=== PATIENT | female | born 1930 | race Caucasian/White ===

== ENCOUNTER 2016-07-30 16:55 | Inpatient (IN) | payer OTHER ==
[~2016-07-30] VITALS: Ht 134.6 cm; Wt 41.5 kg
[~2016-07-30 16:55] MED LIST: ALBU0.63 NEB; AMLO5TAB2 PO; AMLO5TAB4 PO; ASPI-650 PO; ATOR40TA78 PO; BISA10SU65 PR; CALC300T5 PO; CALC400T6 PO; CALC667C3 PO; CALC667T3 PO; CARV3.122 PO; CARV6.2512 PO; CEFD300C2 PO; CLIN300C93 PO; CYAN1TAB29 PO; CYCL5TAB PO; DARB100V SQ; DRON2.5C2 PO; ERGO500017 PO; FERR325T10 PO; FURO-92 PO; HYDR-3138 PO; HYDR-3150 PO; HYDR-3240 PO; HYDR1TAB12 PO; INSU100I11 SQ; INSU100I28 SQ-INSULIN; INSU100V5 SQ-INSULIN; INSU100V8 SQ; IPRA3AMP INH; LANTUS SQ-INSULIN; LEVO100C2 PO; LEVO100T PO; LEVO112T2 PO; LEVO750T26 PO; LEVO88TA4 PO; LISI-167 PO; LISI-170 PO; LISI-424 PO; LISI5TAB7 PO; MECL12.52 PO; METO25TA35 PO; METR500T PO; NOVOLOG SQ-INSULIN; ONDA-39 PO; ONDA4TAB7 PO; PIPE2.253 IV; PIPE2.255 IV; POLY17PO5 PO; PRAV20TA2 PO; PRED10TA PO; PRED10TA14 PO; PRED5TAB PO; PREDNISONE PO; SENN1TAB7 PO; SODI15OR3 DIALYCATH; SULF1TAB3 PO; TRAZ50TA18 PO; humalog SC
[2016-07-30 19:35] VITALS: BP 129/58
[2016-07-30] MEDS ORDERED: BISACODYL 10 MG SUPP PR PRN ×2 (23:00)
[2016-07-30] MEDS: INSULIN REGULAR 100 UNITS/ML, 3ML VIAL SQ-INSULIN SCH (23:00)
[2016-07-30] MEDS ORDERED: POLYETHYLENE GLYCOL 17 GM PACKET PO PRN (23:00)
[2016-07-30] MEDS ORDERED: DOCUSATE 100 MG CAPSULE PO PRN (23:00)
[2016-07-30] MEDS ORDERED: PHARMACOKINETIC MONITORING MC PRN (23:00)
[2016-07-30] MEDS ORDERED: VANCOMYCIN PER PHARMACY MC PRN (23:00)
[2016-07-30] MEDS ORDERED: ACETAMINOPHEN 325 MG TABLET PO PRN (23:00)
[2016-07-30] MEDS: PIPERACILLIN/TAZO/PMX 3.375GM 50 ML IV SCH (23:54)
[2016-07-30] MEDS: HEPARIN 5,000 UNITS/ML, 1ML SQ SCH (23:55)
[2016-07-30] MEDS: MORPHINE SULFATE 4 MG/ML, 1ML IVPush PRN (23:55)
[2016-07-31] MEDS ORDERED: VANCOMYCIN 1,000 MG in SODIUM CHLORIDE 0.9% 100 ML IV ONE (00:30)
[2016-07-31 01:21] VITALS: BP 129/62
[2016-07-31] MEDS ORDERED: ALBUTEROL/IPRATROPIUM 2.5MG/0.5MG, 3 ML NPPB PRN (02:30)
[2016-07-31] MEDS: MORPHINE SULFATE 4 MG/ML, 1ML IVPush PRN (05:15)
[2016-07-31] MEDS: LEVOTHYROXINE 112 MCG TABLET PO SCH (05:15)
[2016-07-31 06:35] LABS: ASPARTATE AMINO TRANSFERASE 19 U/L (15-37); BLOOD UREA NITROGEN 38 mg/dL (7-18)
[2016-07-31] MEDS: HEPARIN 5,000 UNITS/ML, 1ML SQ SCH ×3 (07:00→21:45)
[2016-07-31] MEDS: INSULIN REGULAR 100 UNITS/ML, 3ML VIAL SQ-INSULIN SCH ×4 (07:00→21:00)
[2016-07-31 07:13] VITALS: BP 106/66
[2016-07-31] MEDS: LISINOPRIL 5 MG TABLET PO SCH (08:42)
[2016-07-31] MEDS: FERROUS SULFATE 325 MG TABLET PO SCH ×3 (08:42→21:39)
[2016-07-31] MEDS: FUROSEMIDE 40 MG TABLET PO SCH ×2 (08:42→21:00)
[2016-07-31] MEDS: ASPIRIN 81 MG TABLET EC PO SCH (08:42)
[2016-07-31] MEDS: PIPERACILLIN/TAZO/PMX 3.375GM 50 ML IV SCH (09:30)
[2016-07-31 10:54] LABS: C-REACTIVE PROTEIN, QUANT 5.9 mg/dL (0.02-0.49)
[2016-07-31] MEDS ORDERED: PIPERACILLIN/TAZO 0.75 GM in SODIUM CHLORIDE 0.9% 50 ML IV PRN (12:00)
[2016-07-31 13:21] VITALS: BP 112/69
[2016-07-31] MEDS: HYDROcodone/APAP 5/325 TABLET PO SCH (21:39)
[2016-07-31] MEDS: PIPERACILLIN/TAZO/PMX 2.25GM 50 ML IVPB SCH (21:39)
[2016-07-31 21:52] VITALS: BP 127/59
[2016-08-01 03:51] VITALS: BP 129/65
[2016-08-01 05:05] LABS: HEMOGLOBIN 10.2 g/dL (11.7-16.4)
[2016-08-01 05:12] LABS: BLOOD UREA NITROGEN 22 mg/dL (7-18)
[2016-08-01 05:19] LABS: ASPARTATE AMINO TRANSFERASE 19 U/L (15-37); TOTAL IRON BINDING CAPACITY 96 mcg/dL (250-450)
[2016-08-01 05:33] LABS: ANISOCYTOSIS 1+; MONOS WITH VACUOLES 1+; OVALOCYTES 1+; POIKILOCYTOSIS 1+; POLYCHROMASIA 1+; SCHISTOCYTES 1+
[2016-08-01] MEDS: LEVOTHYROXINE 112 MCG TABLET PO SCH (06:03)
[2016-08-01 06:34] VITALS: BP 131/76
[2016-08-01] MEDS: INSULIN REGULAR 100 UNITS/ML, 3ML VIAL SQ-INSULIN SCH ×4 (07:00→20:32)
[2016-08-01 08:05] LABS: HEP B SURF. AB < 3.1 mIU/mL (0.0-10.0)
[2016-08-01] MEDS: HEPARIN 5,000 UNITS/ML, 1ML SQ SCH ×3 (08:06→22:08)
[2016-08-01] MEDS: ASPIRIN 81 MG TABLET EC PO SCH (08:06)
[2016-08-01] MEDS: LISINOPRIL 5 MG TABLET PO SCH (08:06)
[2016-08-01] MEDS: FERROUS SULFATE 325 MG TABLET PO SCH ×3 (08:06→20:23)
[2016-08-01] MEDS: FUROSEMIDE 40 MG TABLET PO SCH ×2 (08:06→20:23)
[2016-08-01] MEDS ORDERED: DEXTROSE 50%, 50ML SYRINGE IVPush PRN (08:30)
[2016-08-01] MEDS ORDERED: DEXTROSE 4 GM TAB.CHEW PO PRN (08:30)
[2016-08-01] MEDS ORDERED: GLUCAGON 1 MG IM PRN (08:30)
[2016-08-01] MEDS: SODIUM CHLORIDE FLUSH 10ML SYR IVF SCH ×2 (09:00→20:23)
[2016-08-01] MEDS: PIPERACILLIN/TAZO/PMX 2.25GM 50 ML IVPB SCH ×2 (09:44→20:23)
[2016-08-01] MEDS: MORPHINE SULFATE 4 MG/ML, 1ML IVPush PRN ×2 (09:55→15:14)
[2016-08-01 12:44] VITALS: BP 114/51
[2016-08-01] MEDS: HYDROcodone/APAP 5/325 TABLET PO SCH (20:23)
[2016-08-01 20:39] VITALS: BP 117/52
[2016-08-02 01:52] VITALS: BP 133/72
[2016-08-02] MEDS: LEVOTHYROXINE 112 MCG TABLET PO SCH (05:45)
[2016-08-02 06:07] LABS: HEMOGLOBIN 9.5 g/dL (11.7-16.4)
[2016-08-02 06:14] LABS: ASPARTATE AMINO TRANSFERASE 19 U/L (15-37); BLOOD UREA NITROGEN 34 mg/dL (7-18)
[2016-08-02 08:04] VITALS: BP 124/59
[2016-08-02] MEDS: SODIUM CHLORIDE FLUSH 10ML SYR IVF SCH ×2 (08:18→22:09)
[2016-08-02] MEDS: FERROUS SULFATE 325 MG TABLET PO SCH ×3 (08:18→22:08)
[2016-08-02] MEDS: HEPARIN 5,000 UNITS/ML, 1ML SQ SCH ×3 (08:18→23:00)
[2016-08-02] MEDS: INSULIN REGULAR 100 UNITS/ML, 3ML VIAL SQ-INSULIN SCH ×4 (08:18→21:00)
[2016-08-02] MEDS: ASPIRIN 81 MG TABLET EC PO SCH (08:18)
[2016-08-02] MEDS: FUROSEMIDE 40 MG TABLET PO SCH ×2 (08:19→22:08)
[2016-08-02] MEDS: MORPHINE SULFATE 4 MG/ML, 1ML IVPush PRN (08:22)
[2016-08-02] MEDS: PIPERACILLIN/TAZO/PMX 2.25GM 50 ML IVPB SCH ×2 (13:22→22:08)
[2016-08-02] MEDS: LISINOPRIL 5 MG TABLET PO SCH (13:23)
[2016-08-02 15:35] VITALS: BP 127/63
[2016-08-02 19:33] VITALS: BP 108/55
[2016-08-02] MEDS: HYDROcodone/APAP 5/325 TABLET PO SCH (22:08)
[2016-08-03 01:16] VITALS: BP 126/68
[2016-08-03 03:35] LABS: BLOOD UREA NITROGEN 24 mg/dL (7-18)
[2016-08-03 03:40] LABS: HEMOGLOBIN 9.5 g/dL (11.7-16.4)
[2016-08-03] MEDS: LEVOTHYROXINE 112 MCG TABLET PO SCH (05:09)
[2016-08-03] MEDS ORDERED: ALBUMIN HUMAN 5% 500 ML ONE (06:48)
[2016-08-03] MEDS ORDERED: ROPIvacaine/PF 0.2%, 20 ML ONE (06:49)
[2016-08-03] MEDS ORDERED: DOPAMINE/D5W PMX 250 ML IV PRN (07:00)
[2016-08-03] MEDS: INSULIN REGULAR 100 UNITS/ML, 3ML VIAL SQ-INSULIN SCH ×4 (07:00→20:40)
[2016-08-03] MEDS: HEPARIN 5,000 UNITS/ML, 1ML SQ SCH ×3 (07:00→23:00)
[2016-08-03] MEDS ORDERED: MIDAZOLAM 1 MG/ML, 2ML ONE (07:15)
[2016-08-03] MEDS ORDERED: FENTANYL PF 250 MCG/5ML ONE (07:15)
[2016-08-03] MEDS ORDERED: KETAMINE 10 MG/ML, 20ML ONE ×2 (07:16→08:05)
[2016-08-03] MEDS ORDERED: BUPIVACAINE/PF-EPI 0.5% 1:200K ONE (07:26)
[2016-08-03] MEDS ORDERED: BACITRACIN 50,000 UNIT ONE (07:26)
[2016-08-03] MEDS ORDERED: ROCURONIUM 10 MG/ML ONE (08:05)
[2016-08-03] MEDS ORDERED: GLYCOPYRROLATE 0.2MG/1ML ONE (08:05)
[2016-08-03] MEDS ORDERED: NEOSTIGMINE 1 MG/ML, 10ML ONE (08:05)
[2016-08-03] MEDS ORDERED: PROPOFOL 10 MG/ML, 50ML ONE (08:05)
[2016-08-03] MEDS ORDERED: EPHEDRINE 50 MG/ML, 1ML ONE (08:05)
[2016-08-03] MEDS: ASPIRIN 81 MG TABLET EC PO SCH (09:00)
[2016-08-03] MEDS: LISINOPRIL 5 MG TABLET PO SCH (09:00)
[2016-08-03] MEDS: FUROSEMIDE 40 MG TABLET PO SCH ×2 (09:00→20:32)
[2016-08-03] MEDS: SODIUM CHLORIDE FLUSH 10ML SYR IVF SCH ×2 (09:00→20:32)
[2016-08-03] MEDS ORDERED: BACITRACIN 50,000 UNIT IM ONE (09:17)
[2016-08-03] MEDS ORDERED: BUPIVACAINE/PF-EPI 0.5% 1:200K INFIL ONE (09:17)
[2016-08-03] MEDS: PIPERACILLIN/TAZO/PMX 2.25GM 50 ML IVPB SCH ×2 (09:30→23:07)
[2016-08-03] MEDS ORDERED: ALBUTEROL/IPRATROPIUM 2.5MG/0.5MG, 3 ML NPPB PRN (10:00)
[2016-08-03] MEDS ORDERED: OXYcodone 5 MG/5 ML ORAL.SOL UDC PO PRN (10:00)
[2016-08-03] MEDS ORDERED: HYDROmorphone 1 MG/ML, 1ML IV PRN (10:00)
[2016-08-03] MEDS ORDERED: ONDANSETRON 2MG/ML, 2ML IVPush PRN (10:00)
[2016-08-03] MEDS ORDERED: LABETALOL 5MG/ML, 20ML IV PRN (10:00)
[2016-08-03] MEDS ORDERED: hydrALAzine 20 MG/ML, 1ML IV PRN (10:00)
[2016-08-03] MEDS ORDERED: FENTANYL PF 100 MCG/2ML IV PRN (10:00)
[2016-08-03] MEDS ORDERED: EPHEDRINE 50 MG/ML, 1ML IVPush PRN (10:00)
[2016-08-03] MEDS ORDERED: ALBUTEROL SULFATE 2.5 MG/3 ML NPPB PRN (10:00)
[2016-08-03] MEDS ORDERED: ACETAMINOPHEN 325 MG TABLET PO PRN (10:00)
[2016-08-03 10:56] LABS: ASPARTATE AMINO TRANSFERASE 11 U/L (15-37); BLOOD UREA NITROGEN 23 mg/dL (7-18)
[2016-08-03 12:25] VITALS: BP 125/56
[2016-08-03] MEDS: MORPHINE SULFATE 4 MG/ML, 1ML IVPush PRN ×2 (13:27→14:32)
[2016-08-03] MEDS ORDERED: VANCOMYCIN 1,500 MG in SODIUM CHLORIDE 0.9% 250 ML IV ONE (14:00)
[2016-08-03] MEDS: FERROUS SULFATE 325 MG TABLET PO SCH ×3 (15:50→20:32)
[2016-08-03] MEDS ORDERED: VANCOMYCIN PMX 1GM/200ML 200 ML IV ONE (16:00)
[2016-08-03] MEDS ORDERED: HYDROmorphone 1 MG/ML, 1ML ONE (16:24)
[2016-08-03 19:33] VITALS: BP 135/62
[2016-08-03] MEDS: HYDROcodone/APAP 5/325 TABLET PO SCH (20:32)
[2016-08-04 00:15] VITALS: BP 124/54
[2016-08-04] MEDS: HYDROmorphone 2 MG/ML, 1ML IVPush PRN ×2 (02:25→20:18)
[2016-08-04] MEDS: LEVOTHYROXINE 112 MCG TABLET PO SCH (06:00)
[2016-08-04 06:17] LABS: HEMOGLOBIN 9.3 g/dL (11.7-16.4)
[2016-08-04 06:34] LABS: BLOOD UREA NITROGEN 32 mg/dL (7-18)
[2016-08-04] MEDS: INSULIN REGULAR 100 UNITS/ML, 3ML VIAL SQ-INSULIN SCH ×4 (07:00→21:19)
[2016-08-04 07:07] VITALS: BP 137/52
[2016-08-04] MEDS: HEPARIN 5,000 UNITS/ML, 1ML SQ SCH ×3 (08:17→18:35)
[2016-08-04] MEDS: FUROSEMIDE 40 MG TABLET PO SCH ×2 (08:17→20:19)
[2016-08-04] MEDS: FERROUS SULFATE 325 MG TABLET PO SCH ×3 (08:17→20:19)
[2016-08-04] MEDS: ASPIRIN 81 MG TABLET EC PO SCH (08:17)
[2016-08-04] MEDS: LISINOPRIL 5 MG TABLET PO SCH (08:20)
[2016-08-04] MEDS: SODIUM CHLORIDE FLUSH 10ML SYR IVF SCH ×2 (10:29→21:19)
[2016-08-04] MEDS: HYDROcodone/APAP 5/325 TABLET PO SCH ×2 (10:30→16:41)
[2016-08-04] MEDS: PIPERACILLIN/TAZO/PMX 2.25GM 50 ML IVPB SCH ×2 (10:30→21:19)
[2016-08-04 12:54] VITALS: BP 138/62
[2016-08-04 19:54] VITALS: BP 124/61
[2016-08-05 01:18] VITALS: BP 121/56
[2016-08-05] MEDS: HEPARIN 5,000 UNITS/ML, 1ML SQ SCH ×3 (02:19→18:14)
[2016-08-05 03:48] LABS: BLOOD UREA NITROGEN 46 mg/dL (7-18)
[2016-08-05] MEDS: HYDROcodone/APAP 5/325 TABLET PO SCH (04:24)
[2016-08-05] MEDS: LEVOTHYROXINE 112 MCG TABLET PO SCH (05:30)
[2016-08-05] MEDS: INSULIN REGULAR 100 UNITS/ML, 3ML VIAL SQ-INSULIN SCH ×4 (07:00→21:46)
[2016-08-05 08:02] VITALS: BP 123/61
[2016-08-05] MEDS: ASPIRIN 81 MG TABLET EC PO SCH (08:15)
[2016-08-05] MEDS: FERROUS SULFATE 325 MG TABLET PO SCH ×3 (08:15→21:46)
[2016-08-05] MEDS: SODIUM CHLORIDE FLUSH 10ML SYR IVF SCH ×2 (08:16→21:45)
[2016-08-05] MEDS: FUROSEMIDE 40 MG TABLET PO SCH ×2 (08:16→21:46)
[2016-08-05] MEDS: LISINOPRIL 5 MG TABLET PO SCH (08:18)
[2016-08-05] MEDS: PIPERACILLIN/TAZO/PMX 2.25GM 50 ML IVPB SCH ×2 (09:33→21:45)
[2016-08-05] MEDS: HYDROcodone/APAP 5/325 TABLET PO PRN (11:22)
[2016-08-05] MEDS: HYDROmorphone 2 MG/ML, 1ML IVPush PRN (12:23)
[2016-08-05 16:18] VITALS: BP 108/37
[2016-08-05 17:11] VITALS: BP 124/60
[2016-08-05 19:35] VITALS: BP 123/50
[2016-08-06] MEDS: HYDROcodone/APAP 5/325 TABLET PO PRN ×3 (00:51→18:20)
[2016-08-06] MEDS: HEPARIN 5,000 UNITS/ML, 1ML SQ SCH ×3 (02:35→18:20)
[2016-08-06] MEDS: HYDROmorphone 2 MG/ML, 1ML IVPush PRN ×2 (02:48→11:59)
[2016-08-06 03:13] VITALS: BP 103/67
[2016-08-06 05:21] LABS: BLOOD UREA NITROGEN 26 mg/dL (7-18)
[2016-08-06] MEDS: LEVOTHYROXINE 112 MCG TABLET PO SCH (06:35)
[2016-08-06] MEDS: INSULIN REGULAR 100 UNITS/ML, 3ML VIAL SQ-INSULIN SCH ×4 (07:00→23:27)
[2016-08-06 08:09] VITALS: BP 129/61
[2016-08-06] MEDS: LISINOPRIL 5 MG TABLET PO SCH (10:23)
[2016-08-06] MEDS: FERROUS SULFATE 325 MG TABLET PO SCH ×3 (10:24→22:56)
[2016-08-06] MEDS: ASPIRIN 81 MG TABLET EC PO SCH (10:24)
[2016-08-06] MEDS: FUROSEMIDE 40 MG TABLET PO SCH ×2 (10:25→22:57)
[2016-08-06] MEDS: PIPERACILLIN/TAZO/PMX 2.25GM 50 ML IVPB SCH ×2 (10:25→22:57)
[2016-08-06] MEDS: SODIUM CHLORIDE FLUSH 10ML SYR IVF SCH ×2 (10:35→22:57)
[2016-08-06 14:59] VITALS: BP 123/64
[2016-08-06 18:48] VITALS: BP 128/61
[2016-08-07] MEDS: HEPARIN 5,000 UNITS/ML, 1ML SQ SCH ×2 (01:52→11:27)
[2016-08-07 03:32] VITALS: BP 116/57
[2016-08-07 06:45] VITALS: BP 128/57
[2016-08-07] MEDS: LEVOTHYROXINE 112 MCG TABLET PO SCH (06:53)
[2016-08-07] MEDS: INSULIN REGULAR 100 UNITS/ML, 3ML VIAL SQ-INSULIN SCH ×2 (06:53→11:27)
[2016-08-07] MEDS: ASPIRIN 81 MG TABLET EC PO SCH (09:32)
[2016-08-07] MEDS: FUROSEMIDE 40 MG TABLET PO SCH (09:33)
[2016-08-07] MEDS: SODIUM CHLORIDE FLUSH 10ML SYR IVF SCH (09:34)
[2016-08-07] MEDS: LISINOPRIL 5 MG TABLET PO SCH (09:34)
[2016-08-07] MEDS: FERROUS SULFATE 325 MG TABLET PO SCH (09:34)
[2016-08-07 10:58] LABS: BLOOD UREA NITROGEN 40 mg/dL (7-18)
[2016-08-07] MEDS: PIPERACILLIN/TAZO/PMX 2.25GM 50 ML IVPB SCH (11:25)
[2016-08-07] MEDS ORDERED: HYDR-3240 PO (12:19)
[2016-08-07 13:26] VITALS: BP 132/69
[2016-08-07] MEDS ORDERED: VANCOMYCIN PMX 1GM/200ML 200 ML IV ONE (17:00)
== END 2016-08-07 16:30 | DRG 474 ==
LOC: 4EST 17:03 → 4NOR 08-06 05:41
PROVIDERS: ATTEND Family Medicine
PROC: 0T9B70Z Drainage of Bladder with Drainage Device, Via Natural or Artificial Opening (ICD-10-PCS; 2016-07-30)
PROC: 5A1D60Z (ICD-10-PCS; 2016-08-03)
PROC: 0Y6C0Z3 Detachment at Right Upper Leg, Low, Open Approach (ICD-10-PCS; principal; 2016-08-03 08:00)
DX: M86.271 Subacute osteomyelitis, right ankle and foot (principal); E43 Unspecified severe protein-calorie malnutrition; N18.6 End stage renal disease; I50.22 Chronic systolic (congestive) heart failure; I13.2 Hypertensive heart and chronic kidney disease with heart failure and with stage 5 chronic kidney disease, or end stage renal disease; M48.52XA Collapsed vertebra, not elsewhere classified, cervical region, initial encounter for fracture; N39.0 Urinary tract infection, site not specified; L03.115 Cellulitis of right lower limb; L03.116 Cellulitis of left lower limb; E03.9 Hypothyroidism, unspecified; I25.10 Atherosclerotic heart disease of native coronary artery without angina pectoris; D63.1 Anemia in chronic kidney disease; Z66 Do not resuscitate; E11.622 Type 2 diabetes mellitus with other skin ulcer; G89.29 Other chronic pain; S91.301A Unspecified open wound, right foot, initial encounter; E11.22 Type 2 diabetes mellitus with diabetic chronic kidney disease; I73.9 Peripheral vascular disease, unspecified; E11.65 Type 2 diabetes mellitus with hyperglycemia; J45.909 Unspecified asthma, uncomplicated; Z83.3 Family history of diabetes mellitus; Z86.711 Personal history of pulmonary embolism; Z86.73 Personal history of transient ischemic attack (TIA), and cerebral infarction without residual deficits; Z89.511 Acquired absence of right leg below knee; Z89.429 Acquired absence of other toe(s), unspecified side; Z95.0 Presence of cardiac pacemaker; I25.2 Old myocardial infarction; Z90.49 Acquired absence of other specified parts of digestive tract; Z88.1 Allergy status to other antibiotic agents; Z88.5 Allergy status to narcotic agent; Z88.8 Allergy status to other drugs, medicaments and biological substances; Z68.22 Body mass index [BMI] 22.0-22.9, adult
CPT/HCPCS: 36415; 71010; 80048; 80053; 80069; 80202; 81001; 82306; 82607; 82728; 82746; 82962; 83540; 83550; 83735; 83970; 84100; 84443; 84550; 85014; 85018; 85025; 85651; 86140; 86704; 86706; 86850; 86900; 87040; 87070; 87077; 87086; 87186; 87205; 87340; 88307; 93990; J1170; J1644; J1815; J2250; J2543; J2704; J2710; J2795; J3010; J3370; J3490; P9045